=== PATIENT | female | born 1980 | race Two or more races ===

== ENCOUNTER 2017-03-10 15:57 | Emergency (ER) | payer SELFPAY ==
[~2017-03-10] VITALS: Ht 165.1 cm; Wt 67.1 kg
[2017-03-10 16:46] LABS: Urine Bilirubin Negative (Negative); Urine Blood TRACE /uL (Negative); Urine Color Yellow (Yellow); Urine Glucose Normal (Normal); Urine Ketone Negative (Negative); Urine Mucus FEW (None Seen); Urine Nitrite Negative (Negative); Urine RBC 2 /hpf (0 - 4); Urine Squamous Epithelial Cell FEW /hpf (<5); Urine Urobilinogen Normal (Negative); Urine pH 5.5 (5.0-8.0)
[2017-03-10 17:10] LABS: Basophils # (auto) 0.2 uL; Basophils % (auto) 1.5 % (0.0-2.0); Eosinophils # (auto) 0.1 uL; Eosinophils % (auto) 0.8 % (0.0-7.0); Hematocrit 40.4 % (36.0-46.0); Hemoglobin 13.6 g/dL (12.2-16.2); Lymphocytes # (auto) 2.4 uL; Lymphocytes % (auto) 19.4 % (10.0-50.0); Mean Corpuscular Hemoglobin 30.1 pg (28.0-32.0); Mean Corpuscular Hgb Conc. 33.7 g/dL (32.0-36.0); Mean Corpuscular Volume 89.3 fL (80.0-100.0); Mean Platelet Volume 10.3 fL (6.9-10.8); Monocytes # (auto) 0.8 uL; Monocytes % (auto) 6.2 % (0.0-12.0); Neutrophils # (auto) 8.9 uL; Neutrophils % (auto) 72.1 % (37.0-80.0); Platelet Count (auto) 219 10^3/uL (140-450); Red Cell Distribution Width 13.5 % (11.8-14.3); White Blood Cell 12.3 10^3/uL (4.4-10.8)
[2017-03-10 17:26] LABS: Albumin 3.3 g/dL (3.4-5.0); Anion Gap 8 (5-15); Aspartate Aminotransferase 13 U/L (15-37); BUN/Creatinine Ratio 21.3; Blood Urea Nitrogen 10 mg/dL (7-18); Calcium 9.1 mg/dL (8.5-10.1); Carbon Dioxide 23 mmol/L (21-32); Chloride 103 mmol/L (98-107); GFR African American 195 mL/min; GFR Non-African American 161 mL/min; Glucose 83 mg/dL (74-106); Potassium 4.1 mmol/L (3.5-5.1); Sodium 134 mmol/L (136-145)
[2017-03-10 17:28] LABS: Alkaline Phosphatase 63 U/L (45-117); Bilirubin, Total < 0.1 mg/dL (0.2-1.0); Total Protein 7.8 g/dL (6.4-8.2)
[2017-03-10 18:39] VITALS: BP 124/86
== END 2017-03-10 18:52 | disposition home or self-care (01) ==
LOC: ER 15:57
DX: O23.41 Unspecified infection of urinary tract in pregnancy, first trimester (principal); K29.70 Gastritis, unspecified, without bleeding; Z3A.09 9 weeks gestation of pregnancy; Z90.89 Acquired absence of other organs
CPT/HCPCS: 36415; 76705; 76801; 80053; 81001; 84702; 85025

== ENCOUNTER → 2017-04-01 | Outpatient (CLI) | payer MEDICAID ==
[2017-04-01 11:00] LABS: Basophils # (auto) 0 uL; Basophils % (auto) 0.2 % (0.0-2.0); Eosinophils # (auto) 0.1 uL; Eosinophils % (auto) 0.6 % (0.0-7.0); Hematocrit 40.3 % (36.0-46.0); Hemoglobin 13.6 g/dL (12.2-16.2); Lymphocytes # (auto) 2.1 uL; Lymphocytes % (auto) 19.7 % (10.0-50.0); Mean Corpuscular Hemoglobin 29.9 pg (28.0-32.0); Mean Corpuscular Hgb Conc. 33.7 g/dL (32.0-36.0); Mean Corpuscular Volume 88.7 fL (80.0-100.0); Mean Platelet Volume 10.3 fL (6.9-10.8); Monocytes # (auto) 0.5 uL; Monocytes % (auto) 4.9 % (0.0-12.0); Neutrophils # (auto) 7.8 uL; Neutrophils % (auto) 74.6 % (37.0-80.0); Nucleated Red Blood Cells % 0.1 %; Platelet Count (auto) 182 10^3/uL (140-450); Red Cell Distribution Width 13.8 % (11.8-14.3); White Blood Cell 10.4 10^3/uL (4.4-10.8)
== END | disposition home or self-care (01) ==
LOC: LAB 10:00
PROVIDERS: ATTEND Specialist
DX: Z34.80 Encounter for supervision of other normal pregnancy, unspecified trimester (principal); Z36.0 Encounter for antenatal screening for chromosomal anomalies; Z3A.11 11 weeks gestation of pregnancy
CPT/HCPCS: 36415; 80307; 83036; 84702; 85025; 86703; 86762; 86850; 86900; 86901; 87086; 87340; 87591

== ENCOUNTER 2017-04-16 15:55 | Emergency (ER) | payer MEDICAID ==
[~2017-04-16] VITALS: Ht 152.4 cm; Wt 54.9 kg
[2017-04-16 18:27] LABS: Urine Bacteria NONE SEEN /hpf (None Seen); Urine Blood 1+ /uL (Negative); Urine Mucus FEW (None Seen); Urine Specific Gravity 1.031 (1.001-1.035); Urine WBC 9 /hpf (0 - 5)
[2017-04-16 22:35] LABS: Albumin 3.1 g/dL (3.4-5.0); Bilirubin, Total 0.2 mg/dL (0.2-1.0); Potassium 4.2 mmol/L (3.5-5.1); Total Protein 7.4 g/dL (6.4-8.2)
[2017-04-16 22:38] VITALS: BP 120/69
[2017-04-16 22:52] LABS: Basophils # (auto) 0 uL; Basophils % (auto) 0.2 % (0.0-2.0); Eosinophils # (auto) 0.1 uL; Eosinophils % (auto) 0.7 % (0.0-7.0); Hematocrit 40.6 % (36.0-46.0); Hemoglobin 13.7 g/dL (12.2-16.2); Lymphocytes # (auto) 2.6 uL; Lymphocytes % (auto) 22.2 % (10.0-50.0); Mean Corpuscular Hemoglobin 29.8 pg (28.0-32.0); Mean Corpuscular Hgb Conc. 33.7 g/dL (32.0-36.0); Mean Corpuscular Volume 88.4 fL (80.0-100.0); Monocytes # (auto) 0.8 uL; Monocytes % (auto) 6.7 % (0.0-12.0); Neutrophils # (auto) 8.2 uL; Neutrophils % (auto) 70.2 % (37.0-80.0); Nucleated Red Blood Cells % 0.1 %; Platelet Count (auto) 188 10^3/uL (140-450); Red Blood Cells 4.59 10^6/uL (4.0-5.20); White Blood Cell 11.7 10^3/uL (4.4-10.8)
== END 2017-04-16 22:40 | disposition home or self-care (01) ==
LOC: ER 15:58
DX: O23.42 Unspecified infection of urinary tract in pregnancy, second trimester (principal); O20.9 Hemorrhage in early pregnancy, unspecified; O26.892 Other specified pregnancy related conditions, second trimester; R10.30 Lower abdominal pain, unspecified; Z3A.15 15 weeks gestation of pregnancy
CPT/HCPCS: 36415; 76801; 80053; 81001; 84702; 85025; 86901

== ENCOUNTER 2017-07-12 19:13 | Observation (INO) | payer MEDICAID ==
[2017-07-12] MEDS ORDERED: PREN-96 PO (21:22)
== END 2017-07-12 21:15 | disposition home or self-care (01) | DRG 566 ==
LOC: LDRP 19:13
PROVIDERS: ADMIT Obstetrics & Gynecology; ATTEND Obstetrics & Gynecology
DX: O26.892 Other specified pregnancy related conditions, second trimester (principal); K29.70 Gastritis, unspecified, without bleeding; Z3A.26 26 weeks gestation of pregnancy; R10.13 Epigastric pain
CPT/HCPCS: 59025; 81002; G0378

== ENCOUNTER → 2017-07-19 | Outpatient (CLI) | payer MEDICAID ==
[~2017-07-19] MED LIST: PREN-96 PO
[2017-07-19 10:49] LABS: Basophils # (auto) 0 uL; Basophils % (auto) 0.2 % (0.0-2.0); Eosinophils # (auto) 0.1 uL; Eosinophils % (auto) 0.7 % (0.0-7.0); Hematocrit 38.2 % (36.0-46.0); Hemoglobin 12.8 g/dL (12.2-16.2); Lymphocytes # (auto) 2.7 uL; Lymphocytes % (auto) 20.8 % (10.0-50.0); Mean Corpuscular Hemoglobin 30.2 pg (28.0-32.0); Mean Corpuscular Hgb Conc. 33.4 g/dL (32.0-36.0); Mean Corpuscular Volume 90.1 fL (80.0-100.0); Monocytes # (auto) 0.7 uL; Monocytes % (auto) 5.6 % (0.0-12.0); Neutrophils # (auto) 9.5 uL; Neutrophils % (auto) 72.7 % (37.0-80.0); Nucleated Red Blood Cells % 0.2 %; Platelet Count (auto) 189 10^3/uL (140-450); Red Blood Cells 4.23 10^6/uL (4.0-5.20); Red Cell Distribution Width 14.8 % (11.8-14.3); White Blood Cell 13.1 10^3/uL (4.4-10.8)
== END | disposition home or self-care (01) ==
LOC: LAB 09:50
PROVIDERS: ATTEND Specialist
DX: O99.810 Abnormal glucose complicating pregnancy (principal); Z3A.27 27 weeks gestation of pregnancy
CPT/HCPCS: 36415; 82951; 85025

== ENCOUNTER → 2017-07-23 | Outpatient (CLI) | payer MEDICAID | END | disposition home or self-care (01) | LOC: LAB 09:38 | PROVIDERS: ATTEND Specialist | DX: O99.810 Abnormal glucose complicating pregnancy (principal); Z3A.27 27 weeks gestation of pregnancy | CPT/HCPCS: 82951; 82952 ==

== ENCOUNTER 2017-08-27 14:30 | Observation (INO) | payer MEDICAID, OTHER | END 2017-08-27 15:25 | disposition home or self-care (01) | DRG 566 | LOC: LDRP 14:30 | PROVIDERS: ADMIT Obstetrics & Gynecology; ATTEND Obstetrics & Gynecology | DX: O26.893 Other specified pregnancy related conditions, third trimester (principal); R10.2 Pelvic and perineal pain; R51 Headache; O21.2 Late vomiting of pregnancy; M54.9 Dorsalgia, unspecified; Z3A.33 33 weeks gestation of pregnancy | CPT/HCPCS: 59025; 81002; G0378 ==

== ENCOUNTER 2017-08-29 10:40 | Observation (INO) | payer MEDICAID ==
[~2017-08-29] VITALS: Ht 165.1 cm; Wt 82.6 kg
[2017-08-29] MEDS ORDERED: NIFEdipine 10 MG CAP PO ONE (12:00)
[2017-08-29] MEDS ORDERED: BETAMETHASONE ACET (6MG/ML) 5ML VIAL IM ONE (12:00)
[2017-08-29] MEDS ORDERED: BETAMETHASONE ACET (6MG/ML) 5ML VIAL ONE (12:13)
[2017-08-29] MEDS ORDERED: NIFEdipine 10 MG CAP ONE (12:14)
== END 2017-08-29 13:00 | disposition home or self-care (01) | DRG 566 ==
LOC: LDRP 10:40
PROVIDERS: ADMIT Specialist; ATTEND Specialist
DX: O26.893 Other specified pregnancy related conditions, third trimester (principal); R10.9 Unspecified abdominal pain; Z3A.33 33 weeks gestation of pregnancy
CPT/HCPCS: 59025; 76815; 76817; 81002; 96372; G0378; J0702

== ENCOUNTER 2017-08-30 12:20 | Observation (INO) | payer MEDICAID, OTHER ==
[~2017-08-30] VITALS: Ht 30.5 cm; Wt 0.5 kg
[2017-08-31] MEDS ORDERED: BETAMETHASONE ACET (6MG/ML) 5ML VIAL IM ONE (10:00)
== END 2017-08-30 15:10 | disposition home or self-care (01) | DRG 566 ==
LOC: LDRP 12:20
PROVIDERS: ADMIT Specialist; ATTEND Specialist
DX: O26.893 Other specified pregnancy related conditions, third trimester (principal); R10.2 Pelvic and perineal pain; R51 Headache; M54.9 Dorsalgia, unspecified; O21.2 Late vomiting of pregnancy; O60.03 Preterm labor without delivery, third trimester; Z3A.33 33 weeks gestation of pregnancy
CPT/HCPCS: 59025; 81002; 96372; G0378

== ENCOUNTER 2017-09-03 12:10 | Observation (INO) | payer MEDICAID, OTHER ==
[2017-09-03] MEDS ORDERED: NIF10C GT (12:38)
== END 2017-09-03 12:50 | disposition home or self-care (01) | DRG 563 ==
LOC: LDRP 12:10
PROVIDERS: ADMIT Obstetrics & Gynecology; ATTEND Obstetrics & Gynecology
DX: O60.03 Preterm labor without delivery, third trimester (principal); Z3A.34 34 weeks gestation of pregnancy
CPT/HCPCS: 59025; 81002; G0378

== ENCOUNTER 2017-09-07 08:23 | Observation (INO) | payer OTHER ==
[~2017-09-07 08:23] MED LIST changes: +NIF10C GT
== END 2017-09-07 09:20 | disposition home or self-care (01) | DRG 563 ==
LOC: INTOOBSV 08:23 → LDRP 08:23
PROVIDERS: ADMIT Obstetrics & Gynecology; ATTEND Obstetrics & Gynecology
DX: O60.03 Preterm labor without delivery, third trimester (principal); Z3A.35 35 weeks gestation of pregnancy
CPT/HCPCS: 59025; 81002; G0378

== ENCOUNTER 2017-09-09 10:18 | Observation (INO) | payer MEDICAID ==
[2017-09-09] MEDS ORDERED: TERBUTALINE SULFATE 1 MG/ML 1ML VIAL SC ONE (11:08)
[2017-09-09] MEDS ORDERED: TERBUTALINE SULFATE 1 MG/ML 1ML VIAL SC SCH (11:15)
== END 2017-09-09 11:50 | disposition home or self-care (01) | DRG 563 ==
LOC: LDRP 10:18
PROVIDERS: ADMIT Obstetrics & Gynecology; ATTEND Obstetrics & Gynecology
DX: O60.03 Preterm labor without delivery, third trimester (principal); O26.893 Other specified pregnancy related conditions, third trimester; R51 Headache; Z3A.35 35 weeks gestation of pregnancy
CPT/HCPCS: 59025; 81002; 96372; G0378; J3105

== ENCOUNTER 2017-09-11 11:40 | Observation (INO) | payer MEDICAID ==
[~2017-09-11] VITALS: Ht 165.1 cm; Wt 83.0 kg
[2017-09-11] MEDS ORDERED: LACTATED RINGER'S 1,000 ML IV ONE (11:52)
[2017-09-11] MEDS ORDERED: TERBUTALINE SULFATE 1 MG/ML 1ML VIAL SC SCH (12:00)
== END 2017-09-11 15:00 | disposition home or self-care (01) | DRG 563 ==
LOC: LDRP 11:40
PROVIDERS: ADMIT Specialist; ATTEND Specialist
DX: O60.03 Preterm labor without delivery, third trimester (principal); Z3A.35 35 weeks gestation of pregnancy
CPT/HCPCS: 59025; 76815; 76817; 81002; 96360; 96361; 96372; G0378; J3105

== ENCOUNTER 2017-09-14 09:05 | Observation (INO) | payer MEDICAID ==
[~2017-09-14] VITALS: Ht 165.1 cm; Wt 83.0 kg
== END 2017-09-14 10:50 | disposition home or self-care (01) | DRG 563 ==
LOC: LDRP 09:05
PROVIDERS: ADMIT Specialist; ATTEND Specialist
DX: O60.03 Preterm labor without delivery, third trimester (principal); Z3A.36 36 weeks gestation of pregnancy
CPT/HCPCS: 59025; 81002; G0378

== ENCOUNTER 2017-09-17 09:05 | Observation (INO) | payer MEDICAID | END 2017-09-17 10:00 | disposition home or self-care (01) | DRG 563 | LOC: LDRP 09:05 | PROVIDERS: ADMIT Specialist; ATTEND Specialist | DX: O60.03 Preterm labor without delivery, third trimester (principal); O26.893 Other specified pregnancy related conditions, third trimester; M54.9 Dorsalgia, unspecified; Z3A.36 36 weeks gestation of pregnancy | CPT/HCPCS: 59025; 81002; G0378 ==

== ENCOUNTER 2017-09-17 20:42 | Observation (INO) | payer MEDICAID ==
[~2017-09-17] VITALS: Ht 165.1 cm; Wt 62.6 kg
[2017-09-17] MEDS ORDERED: LACTATED RINGER'S 1,000 ML IV ONE (21:21)
== END 2017-09-17 22:46 | disposition home or self-care (01) | DRG 563 ==
LOC: LDRP 20:42
PROVIDERS: ADMIT Specialist; ATTEND Specialist
DX: O60.03 Preterm labor without delivery, third trimester (principal); O26.893 Other specified pregnancy related conditions, third trimester; R42 Dizziness and giddiness; Z3A.36 36 weeks gestation of pregnancy
CPT/HCPCS: 59025; 81002; G0378; 96365; 96366

== ENCOUNTER 2017-09-21 09:00 | Observation (INO) | payer MEDICAID | END 2017-09-21 09:45 | disposition home or self-care (01) | DRG 563 | LOC: LDRP 09:00 | PROVIDERS: ADMIT Obstetrics & Gynecology; ATTEND Obstetrics & Gynecology | DX: O60.03 Preterm labor without delivery, third trimester (principal); Z3A.37 37 weeks gestation of pregnancy | CPT/HCPCS: 59025; 81002; G0378 ==

== ENCOUNTER 2017-09-21 17:15 | Observation (INO) | payer MEDICAID | END 2017-09-21 18:05 | disposition home or self-care (01) | DRG 566 | LOC: LDRP 17:15 | PROVIDERS: ADMIT Obstetrics & Gynecology; ATTEND Obstetrics & Gynecology | DX: O62.9 Abnormality of forces of labor, unspecified (principal); Z3A.37 37 weeks gestation of pregnancy | CPT/HCPCS: 59025; 81002; G0378 ==

== ENCOUNTER 2017-09-30 16:00 | Observation (INO) | payer MEDICAID, OTHER ==
[~2017-09-30 16:00] MED LIST changes: -NIF10C GT
[2017-09-30] MEDS ORDERED: TERBUTALINE SULFATE 1 MG/ML 1ML VIAL SC SCH (17:15)
[2017-09-30 18:10] LABS: Basophils # (auto) 0 uL; Basophils % (auto) 0.2 % (0.0-2.0); Eosinophils # (auto) 0 uL; Eosinophils % (auto) 0.3 % (0.0-7.0); Hematocrit 38.1 % (36.0-46.0); Hemoglobin 12.5 g/dL (12.2-16.2); Lymphocytes # (auto) 2.9 uL; Lymphocytes % (auto) 22.8 % (10.0-50.0); Mean Corpuscular Hemoglobin 29.4 pg (28.0-32.0); Mean Corpuscular Hgb Conc. 32.9 g/dL (32.0-36.0); Mean Corpuscular Volume 89.5 fL (80.0-100.0); Monocytes # (auto) 0.8 uL; Neutrophils # (auto) 8.9 uL; Neutrophils % (auto) 70.7 % (37.0-80.0); Platelet Count (auto) 179 10^3/uL (140-450); Red Blood Cells 4.26 10^6/uL (4.0-5.20); Red Cell Distribution Width 15.4 % (11.8-14.3); White Blood Cell 12.6 10^3/uL (4.4-10.8)
[2017-09-30 18:24] LABS: INR 0.92 (0.9-1.15); Partial Thromboplastin Time 27.7 sec (23.78-33.04); Prothrombin Time 9.9 sec (9.27-12.13)
[2017-09-30 18:28] LABS: Albumin 2.5 g/dL (3.4-5.0); BUN/Creatinine Ratio 16.1; Calcium 8.3 mg/dL (8.5-10.1); Potassium 4.1 mmol/L (3.5-5.1)
[2017-09-30 18:30] LABS: Bilirubin, Total 0.2 mg/dL (0.2-1.0); Total Protein 6.6 g/dL (6.4-8.2)
[2017-09-30] MEDS ORDERED: NIFEdipine 10 MG CAP ONE (18:51)
[2017-09-30 19:01] LABS: Urine Bacteria FEW /hpf (None Seen); Urine Blood Negative /uL (Negative); Urine Specific Gravity 1.004 (1.001-1.035); Urine WBC 1 /hpf (0 - 5)
[2017-09-30] MEDS ORDERED: NIF10C GT (19:26)
== END 2017-09-30 19:22 | disposition home or self-care (01) | DRG 566 ==
LOC: LDRP 16:00
PROVIDERS: ADMIT Obstetrics & Gynecology; ATTEND Obstetrics & Gynecology
DX: O26.893 Other specified pregnancy related conditions, third trimester (principal); O62.9 Abnormality of forces of labor, unspecified; M54.9 Dorsalgia, unspecified; R10.9 Unspecified abdominal pain; Z3A.38 38 weeks gestation of pregnancy
CPT/HCPCS: 36415; 59025; 80053; 81001; 81002; 85025; 85610; 85730; 86850; 86900; 86901; 96372; G0378; J3105

== ENCOUNTER 2017-10-01 10:00 | Inpatient (IN) | payer MEDICAID ==
[~2017-10-01] VITALS: Ht 30.5 cm; Wt 0.5 kg
[2017-10-01] VITALS (9 sets, daily range): BP systolic 113–128; BP diastolic 69–83
[~2017-10-01 10:00] MED LIST changes: +NIF10C GT
[2017-10-01] MEDS ORDERED: LACTATED RINGER'S 1,000 ML IV SCH (10:42)
[2017-10-01] MEDS ORDERED: TETRACAINE 1% INJ 2 ML VIAL IJ ONE (11:12)
[2017-10-01] MEDS ORDERED: fentaNYL CITRATE 100 MCG/2 ML VL ONE (11:15)
[2017-10-01] MEDS ORDERED: MORPHINE SULF(PF) 0.5MG/ML 10ML VIAL ONE (11:15)
[2017-10-01 11:21] LABS: Basophils # (auto) 0 uL; Basophils % (auto) 0.3 % (0.0-2.0); Eosinophils # (auto) 0 uL; Eosinophils % (auto) 0.1 % (0.0-7.0); Hematocrit 36.6 % (36.0-46.0); Hemoglobin 12.1 g/dL (12.2-16.2); Lymphocytes # (auto) 1.9 uL; Lymphocytes % (auto) 15.2 % (10.0-50.0); Mean Corpuscular Hemoglobin 29.2 pg (28.0-32.0); Mean Corpuscular Hgb Conc. 32.9 g/dL (32.0-36.0); Mean Corpuscular Volume 88.7 fL (80.0-100.0); Monocytes # (auto) 0.6 uL; Monocytes % (auto) 4.9 % (0.0-12.0); Neutrophils # (auto) 10.1 uL; Neutrophils % (auto) 79.5 % (37.0-80.0); Nucleated Red Blood Cells % 0.1 %; Platelet Count (auto) 175 10^3/uL (140-450); Red Blood Cells 4.13 10^6/uL (4.0-5.20); Red Cell Distribution Width 15.1 % (11.8-14.3); White Blood Cell 12.7 10^3/uL (4.4-10.8)
[2017-10-01 11:32] LABS: Urine Bacteria FEW /hpf (None Seen); Urine Blood Negative /uL (Negative); Urine Mucus FEW (None Seen); Urine Specific Gravity 1.017 (1.001-1.035); Urine WBC 13 /hpf (0 - 5)
[2017-10-01 11:34] LABS: INR 0.93 (0.9-1.15); Partial Thromboplastin Time 27.3 sec (23.78-33.04)
[2017-10-01 11:50] LABS: Albumin 2.3 g/dL (3.4-5.0); BUN/Creatinine Ratio 14.5; Bilirubin, Total 0.2 mg/dL (0.2-1.0); Calcium 8.5 mg/dL (8.5-10.1); Potassium 4.1 mmol/L (3.5-5.1); Total Protein 6.1 g/dL (6.4-8.2)
[2017-10-01] MEDS ORDERED: ceFAZolin 1GM/50ML 50 ML IV SCH (13:00)
[2017-10-01] MEDS ORDERED: NALOXONE HCL 0.4 MG/ML VIAL IV PRN (13:00)
[2017-10-01] MEDS ORDERED: KETOROLAC TROMETH 30 MG/ML 1ML VIAL IV PRN (13:00)
[2017-10-01] MEDS ORDERED: diphenhdrAMINE HCL 50 MG/1 ML VL IV PRN (13:00)
[2017-10-01] MEDS: LACTATED RINGER'S 1,000 ML IV SCH ×2 (13:00→21:00)
[2017-10-01] MEDS ORDERED: ONDANSETRON HCL 4 MG/2 ML VIAL IV PRN ×2 (13:00)
[2017-10-01] MEDS ORDERED: MEPERIDINE HCL (50 MG/ML) 1 ML VIAL IV PRN (13:00)
[2017-10-01] MEDS ORDERED: LACT. RINGERS/OXYTOCIN 20UNITS 1,000 ML IV ONE (13:48)
[2017-10-01] MEDS: KETOROLAC TROMETH 30 MG/ML 1ML VIAL IV SCH ×2 (17:19→23:55)
[2017-10-01] MEDS: ceFAZolin 1GM/50ML 50 ML IV SCH (22:00)
[2017-10-02] VITALS (9 sets, daily range): BP systolic 108–122; BP diastolic 65–76
[2017-10-02] MEDS: LACTATED RINGER'S 1,000 ML IV SCH ×3 (05:00→23:50)
[2017-10-02 05:06] LABS: RPR Non Reactive (Non Reactive)
[2017-10-02] MEDS: ceFAZolin 1GM/50ML 50 ML IV SCH (05:45)
[2017-10-02] MEDS: KETOROLAC TROMETH 30 MG/ML 1ML VIAL IV SCH ×3 (05:50→23:50)
[2017-10-02 07:22] LABS: Basophils # (auto) 0 uL; Basophils % (auto) 0.2 % (0.0-2.0); Eosinophils # (auto) 0 uL; Eosinophils % (auto) 0.3 % (0.0-7.0); Hematocrit 30.6 % (36.0-46.0); Hemoglobin 10.2 g/dL (12.2-16.2); Lymphocytes # (auto) 1.6 uL; Lymphocytes % (auto) 14.4 % (10.0-50.0); Mean Corpuscular Volume 89.9 fL (80.0-100.0); Monocytes # (auto) 0.6 uL; Monocytes % (auto) 5.1 % (0.0-12.0); Neutrophils # (auto) 9.2 uL; White Blood Cell 11.5 10^3/uL (4.4-10.8)
[2017-10-02 07:23] LABS: Mean Corpuscular Hemoglobin 29.9 pg (28.0-32.0); Mean Corpuscular Hgb Conc. 33.3 g/dL (32.0-36.0); Platelet Count (auto) 133 10^3/uL (140-450); Red Cell Distribution Width 15.2 % (11.8-14.3)
[2017-10-02] MEDS ORDERED: SIMETHICONE 80 MG CHEWABLE TABLET PO PRN (15:15)
[2017-10-02] MEDS ORDERED: HYDROcodone-ACET 5/325MG TAB PO PRN (15:15)
[2017-10-02] MEDS: HYDROcodone-ACET 5/325MG TAB PO PRN ×2 (15:18→21:49)
[2017-10-02] MEDS: DOCUSATE SOD 100 MG CAP PO SCH (22:00)
[2017-10-03] MEDS: HYDROcodone-ACET 5/325MG TAB PO PRN (02:00)
[2017-10-03 03:00] VITALS: BP 111/65
[2017-10-03] MEDS: IBUPROFEN 800 MG TAB PO PRN ×2 (05:24→17:35)
[2017-10-03] MEDS ORDERED: HYDROcodone-ACET 5/325MG TAB ONE (05:47)
[2017-10-03 07:30] VITALS: BP 111/71
[2017-10-03] MEDS: DOCUSATE SOD 100 MG CAP PO SCH ×2 (10:00→22:05)
[2017-10-03 10:45] VITALS: BP 122/77
[2017-10-03 15:20] VITALS: BP 115/72
[2017-10-03 18:58] VITALS: BP 121/75
[2017-10-03] MEDS ORDERED: TETANUS-DIPTH-ACEL PERTUSSIS 0.5ML SYRG IM ONE (20:00)
[2017-10-03] MEDS ORDERED: BISACODYL 10 MG RECT SUPP PR ONE (22:02)
[2017-10-03 23:00] VITALS: BP 120/66
[2017-10-04] MEDS ORDERED: BISACODYL 10 MG RECT SUPP PR PRN (00:15)
[2017-10-04 03:00] VITALS: BP 110/67
[2017-10-04] MEDS: IBUPROFEN 800 MG TAB PO PRN (04:35)
[2017-10-04 06:30] VITALS: BP 110/66
[2017-10-04] MEDS: DOCUSATE SOD 100 MG CAP PO SCH (09:45)
== END 2017-10-04 10:15 | disposition home or self-care (01) | DRG 540 ==
LOC: OBSVTOIN 10:00 → LDRP 10:00
PROVIDERS: ADMIT Obstetrics & Gynecology; ATTEND Obstetrics & Gynecology
PROC: 10D00Z1 Extraction of Products of Conception, Low, Open Approach (ICD-10-PCS; principal; 2017-10-01 11:45)
DX: O32.1XX0 Maternal care for breech presentation, not applicable or unspecified (principal); K21.9 Gastro-esophageal reflux disease without esophagitis; O99.62 Diseases of the digestive system complicating childbirth; Z37.0 Single live birth; Z3A.38 38 weeks gestation of pregnancy; Z90.49 Acquired absence of other specified parts of digestive tract
CPT/HCPCS: 36415; 51702; 59025; 80053; 81001; 81002; 85025; 85610; 85730; 86592; 86850; 86900; 86901; 90715; 94760; 96365; 96366; 96372; 96374; 96375; J0690; J1885; J2405; J2590

== ENCOUNTER 2018-01-28 13:36 | Emergency (ER) | payer MEDICAID ==
[~2018-01-28] VITALS: Ht 165.1 cm; Wt 73.9 kg
[2018-01-28 14:10] VITALS: BP 101/54
== END 2018-01-28 17:57 | disposition home or self-care (01) ==
LOC: ER 13:38
DX: R42 Dizziness and giddiness (principal); M54.5 Low back pain; N76.4 Abscess of vulva; Z79.899 Other long term (current) drug therapy; Z90.49 Acquired absence of other specified parts of digestive tract